=== PATIENT | female | born 1955 | race Two or more races ===

== ENCOUNTER 2024-12-17 06:25 | Inpatient (IN) | payer MEDICARE, OTHER ==
[~2024-12-17] VITALS: Ht 162.6 cm; Wt 112.5 kg
[2024-12-17] MEDS ORDERED: FENTANYL PF 100MCG/2ML AMPUL ONE ×2 (06:42→09:33)
[2024-12-17] MEDS ORDERED: MIDAZOLAM HCL 2 MG/2ML VIAL ONE (06:43)
[2024-12-17] MEDS ORDERED: ANESTHESIA TRAY IN PYXIS 1 EA TRAY MC ONE (06:57)
[2024-12-17] MEDS ORDERED: OXYMETAZOLINE HCL NASAL SPRAY 30 ML BOTTLE NS ONE (06:58)
[2024-12-17] MEDS ORDERED: VANCOMYCIN 1 GM VIAL ONE (06:58)
[2024-12-17] MEDS ORDERED: LIDOCAINE 2%-EPI 1:100,000 30 ML VIAL ONE (06:58)
[2024-12-17] MEDS ORDERED: dexaMETHasone SOD PHOSPHATE 2 ML ONE (06:58)
[2024-12-17] MEDS ORDERED: DEXTROSE 50%-WATER 50 ML DISP.SYRIN IV PRN (11:00)
[2024-12-17] MEDS ORDERED: IV NS 0.9% 1,000 ML IV PRN (11:00)
[2024-12-17] MEDS ORDERED: ONDANSETRON HCL/PF 4 MG/2 ML VIAL IVP PRN (11:00)
[2024-12-17] MEDS ORDERED: AMLO-213 PO (11:47)
[2024-12-17] MEDS ORDERED: FLUT16SP16 BNOSTRILS (11:47)
[2024-12-17] MEDS ORDERED: METF-442 PO (11:47)
[2024-12-17] MEDS ORDERED: ALLO300T72 PO (11:47)
[2024-12-17] MEDS ORDERED: METO100T14 PO (11:47)
[2024-12-17] MEDS ORDERED: OLME40TA18 PO (11:47)
[2024-12-17] MEDS: BLOOD SUGAR DIAGNOSTIC 1 EACH STRIP IN SCH (12:27)
[2024-12-17] MEDS: ACETAMINOPHEN 325 MG TABLET PO PRN (14:11)
[2024-12-17] MEDS ORDERED: MAGNESIUM HYDROXIDE 30 ML UDC PO PRN (15:30)
[2024-12-17] MEDS: VANCOMYCIN 1 GM in IV D5W 250ml IV SCH (16:55)
[2024-12-17] MEDS: METOPROLOL TARTRATE 50 MG TABLET PO SCH (17:37)
[2024-12-17 18:39] LABS: CALCIUM, SERUM 8.8 mg/dL (8.5-10.1); CREATININE 0.9 mg/dL (0.6-1.3); POTASSIUM 3.8 mmol/L (3.5-5.1)
[2024-12-17 20:00] VITALS: BP 113/59; TEMP 98.2; O2SAT 95
[2024-12-17] MEDS: METFORMIN 500 MG TABLET PO SCH (20:20)
[2024-12-17] MEDS: INSULIN REGULAR, HUMAN 100 UNIT/ML 3 ML VIAL SQ PRN (22:45)
[2024-12-18 07:42] LABS: CALCIUM, SERUM 9.1 mg/dL (8.5-10.1); CREATININE 0.7 mg/dL (0.6-1.3); MAGNESIUM 1.9 mg/dL (1.8-2.4); PHOSPHORUS 3.5 mg/dL (2.5-4.9); POTASSIUM 3.5 mmol/L (3.5-5.1)
[2024-12-18 08:00] LABS: EOSINOPHILS % (AUTO) 0.2 % (0.0-6.0); HEMATOCRIT 37 % (33-45); HEMOGLOBIN 12.3 g/dL (11.5-14.8); LYMPHOCYTES # (AUTO) 1.6 K/uL (0.8-4.8); LYMPHOCYTES % (AUTO) 16.1 % (20.0-44.0); MEAN CORPUSCULAR HEMOGLOBIN 29 PG (26.0-33.0); MEAN CORPUSCULAR HGB CONC 34 g/dl (31.0-36.0); MEAN CORPUSCULAR VOLUME 86 fL (82-100); MONOCYTES # (AUTO) 0.7 K/uL (0.1-1.30); MONOCYTES % (AUTO) 7.5 % (2.0-12.0); NEUTROPHILS # (AUTO) 7.4 K/uL (1.8-8.9); NEUTROPHILS % (AUTO) 76.2 % (43.0-81.0); PLATELET COUNT (AUTO) 152 K/uL (150-450); RED BLOOD CELL COUNT(AUTO) 4.28 MIL/uL (4.0-5.2); WHITE BLOOD COUNT (AUTO) 9.7 K/uL (4.3-11.0)
[2024-12-18] MEDS: PANTOPRAZOLE 40 MG TABLET.DR PO SCH (09:04)
[2024-12-18 09:12] VITALS: BP 114/48
[2024-12-18] MEDS: AMLODIPINE BESYLATE 10 MG TABLET PO SCH (09:12)
== END 2024-12-18 13:19 | disposition home or self-care (01) | DRG 145 ==
LOC: DS 06:25 → MED 10:16
PROVIDERS: ADMIT Nurse Practitioner Family
PROC: 0N5V0ZZ Destruction of Left Mandible, Open Approach (ICD-10-PCS; principal; 2024-12-17)
PROC: 0NUV0KZ Supplement Left Mandible with Nonautologous Tissue Substitute, Open Approach (ICD-10-PCS; principal; 2024-12-17)
PROC: 0NUT07Z Supplement Right Mandible with Autologous Tissue Substitute, Open Approach (ICD-10-PCS; principal; 2024-12-17)
PROC: 0NST0ZZ Reposition Right Mandible, Open Approach (ICD-10-PCS; principal; 2024-12-17)
PROC: 0NUT0KZ Supplement Right Mandible with Nonautologous Tissue Substitute, Open Approach (ICD-10-PCS; principal; 2024-12-17)
PROC: 0NUV07Z Supplement Left Mandible with Autologous Tissue Substitute, Open Approach (ICD-10-PCS; principal; 2024-12-17)
PROC: 0N5T0ZZ Destruction of Right Mandible, Open Approach (ICD-10-PCS; principal; 2024-12-17)
PROC: 0NSV0ZZ Reposition Left Mandible, Open Approach (ICD-10-PCS; principal; 2024-12-17)
DX: S02.609B Fracture of mandible, unspecified, initial encounter for open fracture (principal); M27.2 Inflammatory conditions of jaws; E11.9 Type 2 diabetes mellitus without complications; I10 Essential (primary) hypertension; M10.9 Gout, unspecified; Z95.0 Presence of cardiac pacemaker; X58.XXXA Exposure to other specified factors, initial encounter; Y93.9 Activity, unspecified; Y92.9 Unspecified place or not applicable; Y99.9 Unspecified external cause status; M27.40 Unspecified cyst of jaw; M89.8X8 Other specified disorders of bone, other site; D16.5 Benign neoplasm of lower jaw bone
CPT/HCPCS: 36415; 80048-TC; 82962-TC; 83735-TC; 84100-TC; 85025-TC; A4338; C1713; G0378; J0330; J0360; J1100; J1815; J1885; J2250; J2405; J2704; J3010; J3370; J3490; J7030; J7040; J7060

== ENCOUNTER 2025-05-20 06:29 | Inpatient (IN) | payer MEDICARE, OTHER ==
[~2025-05-20] VITALS: Ht 167.6 cm; Wt 115.7 kg
[~2025-05-20 06:29] MED LIST: ALLO300T72 PO; AMLO-213 PO; FLUT16SP16 BNOSTRILS; METF-442 PO; METO100T14 PO; OLME40TA18 PO
[2025-05-20] MEDS ORDERED: dexaMETHasone SOD PHOSPHATE 1 ML ONE (07:01)
[2025-05-20] MEDS ORDERED: VANCOMYCIN 1 GM VIAL ONE (07:01)
[2025-05-20] MEDS ORDERED: LIDOCAINE 2%-EPI 1:100,000 30 ML VIAL ONE (07:01)
[2025-05-20] MEDS ORDERED: FENTANYL PF 250MCG/5ML AMPUL ONE (07:12)
[2025-05-20] MEDS ORDERED: ROCURONIUM BROMIDE 50 MG/5 ML ONE (07:13)
[2025-05-20] MEDS ORDERED: FENTANYL PF 100MCG/2ML AMPUL ONE (09:58)
[2025-05-20] MEDS: HYDROMORPHONE 1 MG/1 ML DISP.SYRIN IV PRN (11:17)
[2025-05-20] MEDS ORDERED: ACETAMINOPHEN 325 MG TABLET PO PRN (11:30)
[2025-05-20] MEDS ORDERED: HYDR25TA4 PO (12:06)
[2025-05-20] MEDS ORDERED: APIX5TAB PO (12:06)
[2025-05-20] MEDS: IV NS 0.9% 1,000 ML IV PRN (15:42)
[2025-05-20] MEDS: ONDANSETRON HCL/PF 4 MG/2 ML VIAL IVP PRN (15:50)
[2025-05-20] MEDS: VANCOMYCIN 1 GM in IV D5W 250ml IV SCH (18:12)
[2025-05-20 20:00] VITALS: BP 120/61; TEMP 97.7; O2SAT 95
[2025-05-21 08:00] VITALS: BP 112/50; TEMP 98.9; O2SAT 96
== END 2025-05-21 13:37 | disposition home or self-care (01) | DRG 908 ==
LOC: DS 06:29 → MED 10:37
PROC: 0NST04Z Reposition Right Mandible with Internal Fixation Device, Open Approach (ICD-10-PCS; 2025-05-20)
PROC: 0N5V0ZZ Destruction of Left Mandible, Open Approach (ICD-10-PCS; 2025-05-20)
PROC: 0NUV07Z Supplement Left Mandible with Autologous Tissue Substitute, Open Approach (ICD-10-PCS; 2025-05-20)
PROC: 0NPW0JZ Removal of Synthetic Substitute from Facial Bone, Open Approach (ICD-10-PCS; 2025-05-20)
PROC: 0N5T0ZZ Destruction of Right Mandible, Open Approach (ICD-10-PCS; 2025-05-20)
PROC: 0NUT07Z Supplement Right Mandible with Autologous Tissue Substitute, Open Approach (ICD-10-PCS; 2025-05-20)
PROC: 0NSV04Z Reposition Left Mandible with Internal Fixation Device, Open Approach (ICD-10-PCS; principal; 2025-05-20 07:30)
DX: T86.831 Bone graft failure (principal); S02.69XK Fracture of mandible of other specified site, subsequent encounter for fracture with nonunion; Z68.41 Body mass index [BMI] 40.0-44.9, adult; M27.2 Inflammatory conditions of jaws; E11.9 Type 2 diabetes mellitus without complications; E66.9 Obesity, unspecified; I10 Essential (primary) hypertension; Y83.2 Surgical operation with anastomosis, bypass or graft as the cause of abnormal reaction of the patient, or of later complication, without mention of misadventure at the time of the procedure; Y92.009 Unspecified place in unspecified non-institutional (private) residence as the place of occurrence of the external cause; Z79.4 Long term (current) use of insulin; Z79.84 Long term (current) use of oral hypoglycemic drugs; I25.10 Atherosclerotic heart disease of native coronary artery without angina pectoris; Z95.0 Presence of cardiac pacemaker; X58.XXXD Exposure to other specified factors, subsequent encounter; D16.4 Benign neoplasm of bones of skull and face
CPT/HCPCS: 82962-TC; 88305-TC; 88311-TC; A4223; A4338; C1713; G0378; J0330; J0461; J0690; J1100; J1171; J2405; J2704; J3010; J3370; J3490; J7030; J7060

== ENCOUNTER 2025-09-23 07:39 | Inpatient (IN) | payer MEDICARE, OTHER ==
[~2025-09-23] VITALS: Ht 165.1 cm; Wt 112.6 kg
[~2025-09-23 07:39] MED LIST changes: -ALLO300T72 PO; +APIX5TAB PO; -FLUT16SP16 BNOSTRILS; +HYDR25TA4 PO
[2025-09-23 08:57] LABS: PLATELET COUNT (AUTO) 196 K/uL (150-450); RED BLOOD CELL COUNT(AUTO) 5.21 MIL/uL (4.0-5.2); RED CELL DISTRIBUTION WIDTH 14.1 % (11.5-15.0); WHITE BLOOD COUNT (AUTO) 7.1 K/uL (4.3-11.0)
[2025-09-23] MEDS ORDERED: OXYMETAZOLINE HCL NASAL SPRAY 30 ML BOTTLE NS ONE (09:17)
[2025-09-23] MEDS ORDERED: dexaMETHasone SOD PHOSPHATE 1 ML ONE (09:17)
[2025-09-23] MEDS ORDERED: LIDOCAINE 2%-EPI 1:100,000 30 ML VIAL ONE (09:17)
[2025-09-23] MEDS ORDERED: VANCOMYCIN 1 GM VIAL ONE (09:17)
[2025-09-23 09:20] LABS: ASPARTATE AMINOTRANSFERASE 17.0 U/L (15-37); CALCIUM, SERUM 9.4 mg/dL (8.5-10.1); CREATININE 0.7 mg/dL (0.6-1.3); SODIUM SERUM 140.0 mmol/L (136-145); TOTAL PROTEIN, SERUM 8.1 g/dL (6.4-8.2); UREA NITROGEN, BLOOD 15.0 mg/dL (7-18)
[2025-09-23] MEDS ORDERED: ALBUTEROL FS 2.5 MG/3 ML VIAL.NEB NEB PRN (10:00)
[2025-09-23] MEDS ORDERED: ROCURONIUM BROMIDE 50 MG/5 ML ONE (11:03)
[2025-09-23] MEDS ORDERED: FENTANYL PF 100MCG/2ML AMPUL ONE (13:18)
[2025-09-23 14:00] VITALS: BP 140/67; TEMP 97.8
[2025-09-23] MEDS ORDERED: HYDROMORPHONE 1 MG/1 ML DISP.SYRIN IV PRN (14:00)
[2025-09-23] MEDS ORDERED: ONDANSETRON HCL/PF 4 MG/2 ML VIAL IVP PRN ×2 (14:00→16:30)
[2025-09-23] MEDS ORDERED: ACETAMINOPHEN 325 MG TABLET PO PRN ×2 (14:00→16:30)
[2025-09-23] MEDS: IV NS 0.9% 1,000 ML IV PRN (14:11)
[2025-09-23 16:31] VITALS: BP 142/66; TEMP 97.7; O2SAT 97
[2025-09-23] MEDS: APIXABAN 5 MG TABLET PO SCH (17:00)
[2025-09-23] MEDS: METOPROLOL TARTRATE 50 MG TABLET PO SCH (17:17)
[2025-09-23] MEDS: MENTHOL/CETYLPYRD (CEPACOL) 1 LOZ LOZENGE PO PRN (17:17)
[2025-09-23] MEDS: METFORMIN 500 MG TABLET PO SCH (17:17)
[2025-09-23 20:00] VITALS: BP 139/61; TEMP 98.4; O2SAT 94
[2025-09-23] MEDS: VANCOMYCIN 1 GM in IV D5W 250ml IV SCH (21:48)
[2025-09-24 07:00] VITALS: BP 116/58; TEMP 98.1; O2SAT 99
[2025-09-24] MEDS: AMLODIPINE BESYLATE 10 MG TABLET PO SCH (09:12)
[2025-09-24 10:15] VITALS: BP 134/61
[2025-09-24] MEDS: HYDROCHLOROTHIAZIDE 25 MG TABLET PO SCH (10:15)
[2025-09-24] MEDS: LOSARTAN POTASSIUM 25 MG TABLET PO SCH (10:15)
== END 2025-09-24 14:54 | disposition home or self-care (01) | DRG 908 ==
LOC: DS 07:39 → MED 10:52
PROVIDERS: ADMIT Nurse Practitioner Acute Care; ATTEND Nurse Practitioner Acute Care
PROC: 0N5T0ZZ Destruction of Right Mandible, Open Approach (ICD-10-PCS; 2025-09-23)
PROC: 0NPW04Z Removal of Internal Fixation Device from Facial Bone, Open Approach (ICD-10-PCS; 2025-09-23)
PROC: 0NHV04Z Insertion of Internal Fixation Device into Left Mandible, Open Approach (ICD-10-PCS; 2025-09-23)
PROC: 0NUV07Z Supplement Left Mandible with Autologous Tissue Substitute, Open Approach (ICD-10-PCS; 2025-09-23)
PROC: 0NPW07Z Removal of Autologous Tissue Substitute from Facial Bone, Open Approach (ICD-10-PCS; 2025-09-23)
PROC: 0N5V0ZZ Destruction of Left Mandible, Open Approach (ICD-10-PCS; principal; 2025-09-23 10:10)
DX: T86.831 Bone graft failure (principal); S02.69XK Fracture of mandible of other specified site, subsequent encounter for fracture with nonunion; T84.69XA Infection and inflammatory reaction due to internal fixation device of other site, initial encounter; M27.2 Inflammatory conditions of jaws; E11.9 Type 2 diabetes mellitus without complications; E66.9 Obesity, unspecified; I10 Essential (primary) hypertension; I25.10 Atherosclerotic heart disease of native coronary artery without angina pectoris; M10.9 Gout, unspecified; D16.5 Benign neoplasm of lower jaw bone; Z79.84 Long term (current) use of oral hypoglycemic drugs; Y83.2 Surgical operation with anastomosis, bypass or graft as the cause of abnormal reaction of the patient, or of later complication, without mention of misadventure at the time of the procedure; Y83.8 Other surgical procedures as the cause of abnormal reaction of the patient, or of later complication, without mention of misadventure at the time of the procedure; X58.XXXD Exposure to other specified factors, subsequent encounter; Z95.0 Presence of cardiac pacemaker; Y92.009 Unspecified place in unspecified non-institutional (private) residence as the place of occurrence of the external cause
CPT/HCPCS: 36415; 80053-TC; 82962-TC; 85025-TC; 86140-TC; 88300-TC; 88305-TC; 88311-TC; 88312-TC; A4217; A4223; A4338; G0378; J0461; J0690; J1100; J1200; J2704; J3010; J3373; J3490; J7030; J7060